=== PATIENT | male | born 1945 | race African-American/Black ===

== ENCOUNTER 2021-02-08 16:18 | Inpatient (IN) | payer MEDICARE ==
[2021-02-08 16:54] VITALS: BMI 27.1
[2021-02-08] MEDS ORDERED: Guaifenesin DM 100-10/5 ML UDCUP PO PRN (17:47)
[2021-02-08] MEDS ORDERED: Acetaminophen 325 MG TAB PO PRN (17:47)
[2021-02-08] MEDS ORDERED: Senokot S 8.6-50 MG TAB PO PRN (17:47)
[2021-02-08] MEDS ORDERED: Ondansetron PF 4 MG/2 ML Vial IVP PRN (17:47)
[2021-02-08] MEDS ORDERED: traMADol HCl 50 MG TAB PO PRN (17:57)
[2021-02-08] MEDS ORDERED: Naproxen 500 MG TAB PO PRN (18:43)
[2021-02-08] MEDS: Meropenem 500 MG in Sodium Chloride 0.9% 100 ML IVPB SCH (20:28)
[2021-02-08] MEDS ORDERED: Cefepime 2 GM in Sodium Chloride 0.9% 100 ML IVPB SCH (21:00)
[2021-02-08] MEDS: 1/2 NS w/KCL 20 mEq 1,000 ML IV SCH (23:15)
[2021-02-08] MEDS: Acetaminophen 325 MG TAB PO PRN (23:15)
[2021-02-09] MEDS: Meropenem 500 MG in Sodium Chloride 0.9% 100 ML IVPB SCH ×4 (02:59→21:19)
[2021-02-09] MEDS: Vancomycin HCl 1 GM in Sodium Chloride 0.9% 250 ML 250 ML IVPB SCH ×2 (03:54→15:58)
[2021-02-09] MEDS: Acetaminophen 325 MG TAB PO PRN ×3 (04:15→21:19)
[2021-02-09 05:47] LABS: ALT (SGPT) 300 U/L (8-55); AST (SGOT) 114 U/L (5-34); Alkaline Phosphatase 220 U/L (40-110); Anion Gap 12 mmol/L (10-20); BUN (Urea Nitrogen) 13 mg/dL (8.4-25.7); Bilirubin, Direct 0.4 mg/dL (0.1-0.3); Bilirubin, Total 0.8 mg/dL (0.2-1.2); Calc. Creatinine Clearance 83 mL/min (70-130); Calcium 8.4 mg/dL (7.8-10.44); Carbon Dioxide 24 mmol/L (23-31); Chloride 106 mmol/L (98-107); Globulin 3.2 g/dL (2.4-3.5); Glucose 104 mg/dL (83-110); Protein, Total 6.2 g/dL (5.8-8.1); Sodium 138 mmol/L (136-145)
[2021-02-09 05:52] LABS: #Eosinphils 0.1 10x3/uL (0.0-0.5); #Monocytes 0.3 10x3/uL (0.0-1.1); #Neutrophils 11.8 10x3/uL (1.5-8.4); %Basophils 0.3 % (0.0-2.0); %Eosinophils 0.7 % (0.0-6.0); %Lymphocytes 5.5 % (18.0-47.0); %Monocytes 2.1 % (0.0-10.0); %Neutrophils 90.8 % (40.0-75.0); Hemoglobin 10.2 g/dL (13.5-17.5); Mean Corpuscular HGB CONC 31.7 g/dL (32.0-36.0); Mean Corpuscular Hemoglobin 31.5 pg (27.0-33.0); Mean Corpuscular Volume 99.4 fl (81.2-95.1); Mean Platelet Volume 9.2 fl (7.4-10.4); Platelet Count 568 10x3/uL (150-450); RBC Distribution Width 13.1 % (11.5-14.5); Red Blood Cell (RBC) Count 3.24 10x6/uL (4.32-5.72)
[2021-02-09] MEDS: Losartan Potassium 50 MG TAB PO SCH (10:23)
[2021-02-09] MEDS: Aspirin 81 mg Enteric Coated Tablet PO SCH (10:24)
[2021-02-09] MEDS: Enoxaparin Sodium 40 MG/0.4 ML SYRINGE SC SCH (10:26)
[2021-02-09] MEDS: Fluticasone Propionate Nasal Spray 16 gm Bottle NASAL SCH (10:27)
[2021-02-09] MEDS: Hydrochlorothiazide 25 MG TAB PO SCH (10:27)
[2021-02-09] MEDS: 1/2 NS w/KCL 20 mEq 1,000 ML IV SCH ×2 (15:56→22:53)
[2021-02-09 20:56] LABS: SARS-CoV-2 IgG Ab Non-Reactive (NonReactive); SARS-CoV-2 IgG Index 0.03 S/CO (< 1.40)
[2021-02-10] MEDS: Meropenem 500 MG in Sodium Chloride 0.9% 100 ML IVPB SCH ×4 (02:59→20:16)
[2021-02-10] MEDS: Vancomycin HCl 1 GM in Sodium Chloride 0.9% 250 ML 250 ML IVPB SCH (02:59)
[2021-02-10] MEDS: 1/2 NS w/KCL 20 mEq 1,000 ML IV SCH ×2 (04:51→14:11)
[2021-02-10 05:11] LABS: ALT (SGPT) 234 U/L (8-55); AST (SGOT) 71 U/L (5-34); Albumin 3.1 g/dL (3.4-4.8); Alkaline Phosphatase 189 U/L (40-110); Bilirubin, Direct 0.2 mg/dL (0.1-0.3); Bilirubin, Total 0.5 mg/dL (0.2-1.2); Protein, Total 6.4 g/dL (5.8-8.1)
[2021-02-10] MEDS: Losartan Potassium 50 MG TAB PO SCH (09:26)
[2021-02-10] MEDS: Aspirin 81 mg Enteric Coated Tablet PO SCH (09:26)
[2021-02-10] MEDS: Hydrochlorothiazide 25 MG TAB PO SCH (09:27)
[2021-02-10] MEDS: Enoxaparin Sodium 40 MG/0.4 ML SYRINGE SC SCH (09:27)
[2021-02-10] MEDS: Fluticasone Propionate Nasal Spray 16 gm Bottle NASAL SCH (09:27)
[2021-02-10] MEDS: Acetaminophen 325 MG TAB PO PRN ×2 (11:40→20:27)
[2021-02-10 15:04] LABS: Vancomycin, Trough 8.4 ug/mL
[2021-02-10 15:06] LABS: BUN (Urea Nitrogen) 9 mg/dL (8.4-25.7); Calc. Creatinine Clearance 98 mL/min (70-130)
[2021-02-10] MEDS: Vancomycin 1.5 GRAM/300 ML BAG 1.5 GM in Premix Bag 1 BAG IVPB SCH (16:04)
[2021-02-11] MEDS: 1/2 NS w/KCL 20 mEq 1,000 ML IV SCH ×2 (00:28→11:44)
[2021-02-11] MEDS: Vancomycin 1.5 GRAM/300 ML BAG 1.5 GM in Premix Bag 1 BAG IVPB SCH (03:03)
[2021-02-11] MEDS: Meropenem 500 MG in Sodium Chloride 0.9% 100 ML IVPB SCH ×2 (03:09→08:41)
[2021-02-11] MEDS: Acetaminophen 325 MG TAB PO PRN (03:35)
[2021-02-11 04:46] LABS: SARS-CoV-2 PCR NAA for Saliva Not Detected (NotDetected)
[2021-02-11 05:36] LABS: BUN (Urea Nitrogen) 7 mg/dL (8.4-25.7); Calc. Creatinine Clearance 107 mL/min (70-130)
[2021-02-11] MEDS: Enoxaparin Sodium 40 MG/0.4 ML SYRINGE SC SCH (08:39)
[2021-02-11] MEDS: Aspirin 81 mg Enteric Coated Tablet PO SCH (08:40)
[2021-02-11] MEDS: Losartan Potassium 50 MG TAB PO SCH (08:40)
[2021-02-11] MEDS: Fluticasone Propionate Nasal Spray 16 gm Bottle NASAL SCH (08:40)
[2021-02-11] MEDS: Hydrochlorothiazide 25 MG TAB PO SCH (08:41)
[2021-02-11 12:57] VITALS: BP 148/83; TEMP 98.3
== END 2021-02-11 15:07 | disposition home or self-care (01) | DRG 194 ==
LOC: CSHTELE 16:18 → OBSVTOIN 16:18
PROVIDERS: ADMIT Internal Medicine; ATTEND Internal Medicine
DX: J18.9 Pneumonia, unspecified organism (principal); I47.1 Supraventricular tachycardia; Z20.822 Contact with and (suspected) exposure to COVID-19; I10 Essential (primary) hypertension; F10.10 Alcohol abuse, uncomplicated; E78.5 Hyperlipidemia, unspecified; K21.9 Gastro-esophageal reflux disease without esophagitis; R79.89 Other specified abnormal findings of blood chemistry; E04.9 Nontoxic goiter, unspecified; K76.89 Other specified diseases of liver; K76.0 Fatty (change of) liver, not elsewhere classified; Z79.82 Long term (current) use of aspirin; Z87.891 Personal history of nicotine dependence; Z79.891 Long term (current) use of opiate analgesic; Z79.899 Other long term (current) drug therapy
CPT/HCPCS: 36415; 71046; 74177; 76536; 80053; 80076; 80202; 82248; 82565; 84520; 85025; 85652; 86140; 86769; 87635; 93975; 94760; J1650; J2185; J3370; J3480; J3490; J7050; U0003; U0005